=== PATIENT | female | born 1970 | race Caucasian/White ===

== ENCOUNTER 2016-05-18 17:04 | Emergency (ER) | payer OTHER ==
[~2016-05-18] VITALS: Ht 188 cm; Wt 103.3 kg
[~2016-05-18 17:04] MED LIST: ASPIRIN81 M1 PO; AUGMENTIN875 MG PO; BACTRIM,SEPT1 TABLET PO; BENADRYL25 MG PO; CIPRO500 MG PO; CIPROFLOXACIN500 M1 PO; CLONAZEPAM0.5 MG PO; FIORICET 50-301 EACH PO; FLEXERIL10 MG PO; HYDROCODON-ACE1 EAC7 PO; KEFLEX500 MG PO; KENALOG,ARISTOC80 GM TP; LEXAPRO10 MG PO; MEDROL DOSEPAK4 MG PO; MOBIC7.5 MG PO; MOTRIN800 MG PO; NAPROSYN500 MG PO; NAPROXEN500 MG PO; NO ROUTINE HOME MEDS; NOHOMEMEDS; NORCO 5/3251 TABLET PO; PHENAZOPYRIDIN100 MG PO; PREDNISONE20 MG PO; TESSALON PERLE100 MG PO; TESSALON200 MG PO; VENTOLIN HFA18 GM IH; ZITHROMAX Z-PA250 MG PO; ZITHROMAX250 MG PO; ZITHROMAX500 MG PO; ZOFRAN ODT4 MG PO
[2016-05-18 17:41] LABS: HEMATOCRIT 39.7 % (36.0-46.0); MCH 28.4 PG (29.0-34.0); MCHC 32.2 G/DL (30.0-36.0); MEAN PLAT.VOLUME 9.6 uM^3 (9.5-12.4); PLATELET COUNT 336 K/uL (156-360); RBC DIS.WIDTH-CV 13.3 % (11.8-14.6); RBC DIS.WIDTH-SD 43.2 % (39-53); RED BLOOD COUNT 4.51 M/uL (3.80-5.20); WHITE BLOOD COUNT 8.3 K/uL (4.1-10.2)
[2016-05-18 18:00] LABS: CHLORIDE 108 mEq/L (99-109); POTASSIUM 3.5 mEq/L (3.7-5.4); SODIUM 142 mEq/L (136-147)
[2016-05-18 18:02] LABS: GLUCOSE 117 mg/dL (70-99)
[2016-05-18 18:03] LABS: ANION GAP 9 MEQ/L (2-14)
[2016-05-18 18:04] LABS: TOTAL BILIRUBIN 0.3 mg/dL (0.0-1.0)
[2016-05-18 18:05] LABS: ALKALINE PHOSPHATASE 66 IU/L (3-129)
[2016-05-18 18:06] LABS: GFR ESTIMATE (CALCULATED) > 59 mL/min/
[2016-05-18 18:07] LABS: UREA NITROGEN (BUN) 11 mg/dL (9-23)
[2016-05-18 18:17] LABS: QUANTITATIVE HCG < 4.0 MIU/ML
[2016-05-18 18:18] LABS: ADD MIUA? YES; BILIRUBIN NEGATIVE; BLOOD LARGE; COLOR YELLOW ((YELLOW)); GLUCOSE (STRIP) NEGATIVE; KETONES NEGATIVE; LEUKOCYTES NEGATIVE; NITRITE NEGATIVE; PROTEIN (STRIP) 30; SPECIFIC GRAVITY 1.029 (1.000-1.030); UROBILINOGEN 0.2 MG/DL (0.2-1.0)
[2016-05-18 18:51] LABS: CALCIUM OXALATE CRYSTALS 2+ /HPF; CASTS PRESENT /LPF; CRYSTALS PRESENT; HYALINE CASTS 0-5 /LPF
[2016-05-18 18:52] LABS: BACTERIA 1+ /HPF; EPITHELIAL CELLS 1+ /HPF; MUCUS 3+ /LPF; RED BLOOD CELLS 0-5 /HPF (0-5); UCUL ADDED? NO
[2016-05-18] MEDS ORDERED: ABILIFY5 MG PO (19:21)
[2016-05-18] MEDS ORDERED: ZOLOFT50 MG PO (19:21)
[2016-05-18] MEDS ORDERED: PROVERA,CYCRIN10 MG PO (21:38)
[2016-05-18] MEDS ORDERED: ULTRAM50 MG PO (21:38)
[2016-05-18 21:50] VITALS: BP 126/85
== END 2016-05-18 21:59 | disposition home or self-care (01) ==
LOC: EME 17:04
DX: N93.8 Other specified abnormal uterine and vaginal bleeding (principal); D25.9 Leiomyoma of uterus, unspecified; Z88.1 Allergy status to other antibiotic agents; Z88.6 Allergy status to analgesic agent
CPT/HCPCS: 76856; 80053; 81003; 84702; 85027; 99281; 99284; J1885

== ENCOUNTER 2016-08-10 19:40 | Inpatient (IN) | payer OTHER ==
[~2016-08-10] VITALS: Ht 188 cm; Wt 100.0 kg
[~2016-08-10 19:40] MED LIST changes: +ABILIFY5 MG PO; +PROVERA,CYCRIN10 MG PO; +ULTRAM50 MG PO; +ZOLOFT50 MG PO
[2016-08-10 21:12] LABS: HEMATOCRIT 38.4 % (36.0-46.0); MCH 28.5 PG (29.0-34.0); MCHC 32.8 G/DL (30.0-36.0); MCV 86.9 FL (83-99); MEAN PLAT.VOLUME 9.6 uM^3 (9.5-12.4); PLATELET COUNT 276 K/uL (156-360); RBC DIS.WIDTH-CV 13.1 % (11.8-14.6); RBC DIS.WIDTH-SD 41.4 % (39-53); RED BLOOD COUNT 4.42 M/uL (3.80-5.20); WHITE BLOOD COUNT 11.3 K/uL (4.1-10.2)
[2016-08-10 21:25] LABS: CHLORIDE 104 mEq/L (99-109); POTASSIUM 3.5 mEq/L (3.7-5.4); SODIUM 138 mEq/L (136-147)
[2016-08-10 21:27] LABS: GLUCOSE 90 mg/dL (70-99)
[2016-08-10 21:28] LABS: ANION GAP 9 MEQ/L (2-14)
[2016-08-10 21:29] LABS: TOTAL BILIRUBIN 0.6 mg/dL (0.0-1.0)
[2016-08-10 21:31] LABS: ALKALINE PHOSPHATASE 66 IU/L (3-129); GFR ESTIMATE (CALCULATED) > 59 mL/min/
[2016-08-10 21:32] LABS: UREA NITROGEN (BUN) 10 mg/dL (9-23)
[2016-08-10 21:34] LABS: LIPASE 33 U/L (1.0-51.0)
[2016-08-10 21:40] LABS: QUANTITATIVE HCG < 4.0 MIU/ML
[2016-08-10 21:46] LABS: ADD MIUA? YES; BILIRUBIN NEGATIVE; BLOOD MODERATE; COLOR YELLOW ((YELLOW)); GLUCOSE (STRIP) NEGATIVE; KETONES NEGATIVE; LEUKOCYTES SMALL; NITRITE NEGATIVE; PROTEIN (STRIP) 30; SPECIFIC GRAVITY 1.016 (1.000-1.030); UROBILINOGEN 0.2 MG/DL (0.2-1.0)
[2016-08-10 22:01] LABS: BACTERIA 2+ /HPF; CASTS PRESENT /LPF; CRYSTALS NONE SEEN; EPITHELIAL CELLS 1+ /HPF; HYALINE CASTS RARE /LPF; MUCUS 3+ /LPF; UCUL ADDED? NO; WHITE BLOOD CELLS 0-5 /HPF (0-5)
[2016-08-10] MEDS ORDERED: OXCARBAZEPINE150 MG PO (22:56)
[2016-08-10] MEDS ORDERED: ELAVIL50 MG PO (22:56)
[2016-08-11] VITALS (7 sets, daily range): BP systolic 99–112; BP diastolic 49–65
[2016-08-11 07:15] LABS: HEMATOCRIT 35.1 % (36.0-46.0); MCH 28.5 PG (29.0-34.0); MCHC 32.5 G/DL (30.0-36.0); MCV 87.8 FL (83-99); MEAN PLAT.VOLUME 10.1 uM^3 (9.5-12.4); PLATELET COUNT 250 K/uL (156-360); RBC DIS.WIDTH-CV 13.1 % (11.8-14.6); RBC DIS.WIDTH-SD 42.4 % (39-53); WHITE BLOOD COUNT 10.4 K/uL (4.1-10.2)
[2016-08-11 07:32] LABS: ANION GAP 7 MEQ/L (2-14); CHLORIDE 105 MEQ/L (99-109); GFR ESTIMATE (CALCULATED) > 59 mL/min/; GLUCOSE 93 mg/dL (70-99); POTASSIUM 3.8 MEQ/L (3.7-5.4); SAMPLE HEMOLYSIS CHECK 0; SAMPLE ICTERIC CHECK 0; SAMPLE LIPEMIA CHECK 0; SODIUM 139 MEQ/L (136-147); UREA NITROGEN (BUN) 10 mg/dL (9-23)
[2016-08-12 03:30] VITALS: BP 95/52
[2016-08-12 07:20] VITALS: BP 99/53
[2016-08-12 07:30] LABS: HEMATOCRIT 36.6 % (36.0-46.0); MCH 28.1 PG (29.0-34.0); MCHC 31.7 G/DL (30.0-36.0); MCV 88.6 FL (83-99); PLATELET COUNT 266 K/uL (156-360); RBC DIS.WIDTH-CV 13.2 % (11.8-14.6); RBC DIS.WIDTH-SD 43.3 % (39-53); RED BLOOD COUNT 4.13 M/uL (3.80-5.20)
[2016-08-12 07:43] LABS: ANION GAP 7 MEQ/L (2-14); CHLORIDE 108 MEQ/L (99-109); GFR ESTIMATE (CALCULATED) > 59 mL/min/; GLUCOSE 91 mg/dL (70-99); POTASSIUM 4.1 MEQ/L (3.7-5.4); SAMPLE HEMOLYSIS CHECK 0; SAMPLE ICTERIC CHECK 0; SAMPLE LIPEMIA CHECK 0; SODIUM 141 MEQ/L (136-147); UREA NITROGEN (BUN) 8 mg/dL (9-23)
[2016-08-12] MEDS ORDERED: CIPRO500 MG PO (09:54)
[2016-08-12] MEDS ORDERED: FLAGYL500 MG PO ×2 (09:54→15:01)
== END 2016-08-12 10:56 | disposition home or self-care (01) | DRG 392 ==
LOC: EME 19:40 → EXP 19:40 → 2EAST 23:13 → EDOF 23:13 → 2EAST 08-11 00:26
PROVIDERS: Internal Medicine; Physician Assistant
DX: K57.20 Diverticulitis of large intestine with perforation and abscess without bleeding (principal); E87.6 Hypokalemia; D72.829 Elevated white blood cell count, unspecified; K76.0 Fatty (change of) liver, not elsewhere classified; E66.9 Obesity, unspecified; Z68.28 Body mass index [BMI] 28.0-28.9, adult; Z86.010 Personal history of colon polyps; Z88.5 Allergy status to narcotic agent; Z98.51 Tubal ligation status
CPT/HCPCS: 74177; 80048; 80053; 81003; 83690; 84702; 85027; 87040; 99281; 99285; J0744; J1644; J1885; J2270; J2405; J7030; S0030

== ENCOUNTER → 2016-10-04 | Outpatient (CLI) | payer OTHER ==
[~2016-10-04] MED LIST changes: +ELAVIL50 MG PO; +FLAGYL500 MG PO; +OXCARBAZEPINE150 MG PO
== END | disposition home or self-care (01) ==
LOC: CDC 11:41
DX: K57.32 Diverticulitis of large intestine without perforation or abscess without bleeding (principal)
CPT/HCPCS: 93000

== ENCOUNTER 2016-10-10 22:06 | Inpatient (IN) | payer OTHER ==
[~2016-10-10] VITALS: Ht 182.9 cm; Wt 86.1 kg
[2016-10-11 07:23] VITALS: BP 104/68
[2016-10-11 17:50] VITALS: BP 112/66
[2016-10-11 19:49] LABS: HEMATOCRIT 35.2 % (36.0-46.0); MCH 30.2 PG (29.0-34.0); MCHC 34.4 G/DL (30.0-36.0); MCV 87.8 FL (83-99); MEAN PLAT.VOLUME 9.7 uM^3 (9.5-12.4); PLATELET COUNT 261 K/uL (156-360); RBC DIS.WIDTH-CV 13.2 % (11.8-14.6); RBC DIS.WIDTH-SD 42.6 % (39-53); RED BLOOD COUNT 4.01 M/uL (3.80-5.20); WHITE BLOOD COUNT 11.1 K/uL (4.1-10.2)
[2016-10-11 19:50] VITALS: BP 95/57
[2016-10-11 20:04] LABS: ANION GAP 11 MEQ/L (2-14); CHLORIDE 106 MEQ/L (99-109); POTASSIUM 3.9 MEQ/L (3.7-5.4); SAMPLE HEMOLYSIS CHECK 0; SAMPLE ICTERIC CHECK 0; SAMPLE LIPEMIA CHECK 0; SODIUM 141 MEQ/L (136-147); TOTAL BILIRUBIN 0.6 MG/DL (0.0-1.0)
[2016-10-11 20:10] LABS: ALKALINE PHOSPHATASE 62 IU/L (3-129); GFR ESTIMATE (CALCULATED) > 59 mL/min/; GLUCOSE 152 mg/dL (70-99); UREA NITROGEN (BUN) 7 mg/dL (9-23)
[2016-10-12 00:32] VITALS: BP 90/64
[2016-10-12 07:05] VITALS: BP 110/61
[2016-10-12 10:11] LABS: EOSINOPHIL (%) 0.1 % (0-5); HEMATOCRIT 34.7 % (36.0-46.0); IMMATURE GRANULOCYTE (%) 0.4 % (0.0-0.7); INSTRUMENT ABS NEUTROPHIL CT 7.3 K/uL; LYMPHOCYTE COUNT 2.3 K/uL (1.0-2.8); MCH 28.9 PG (29.0-34.0); MCHC 32.6 G/DL (30.0-36.0); MCV 88.7 FL (83-99); MEAN PLAT.VOLUME 9.8 uM^3 (9.5-12.4); MONOCYTE (%) 6.3 % (3-12); MONOCYTE COUNT 0.7 K/uL (0-0.8); NEUTROPHIL (%) 70.9 % (45-76); NEUTROPHIL COUNT 7.3 K/uL (1.8-6.4); PLATELET COUNT 259 K/uL (156-360); RBC DIS.WIDTH-CV 13.4 % (11.8-14.6); RED BLOOD COUNT 3.91 M/uL (3.80-5.20); WHITE BLOOD COUNT 10.3 K/uL (4.1-10.2)
[2016-10-12 10:37] LABS: ALKALINE PHOSPHATASE 52 IU/L (3-129); ANION GAP 7 MEQ/L (2-14); CHLORIDE 109 MEQ/L (99-109); GFR ESTIMATE (CALCULATED) > 59 mL/min/; MAGNESIUM 1.9 mg/dl (1.3-2.7); POTASSIUM 3.9 MEQ/L (3.7-5.4); SAMPLE HEMOLYSIS CHECK 0; SAMPLE ICTERIC CHECK 0; SAMPLE LIPEMIA CHECK 0; SODIUM 145 MEQ/L (136-147); UREA NITROGEN (BUN) 7 mg/dL (9-23)
[2016-10-12 10:39] LABS: GLUCOSE 110 mg/dL (70-99); TOTAL BILIRUBIN 0.4 MG/DL (0.0-1.0)
[2016-10-12 11:00] VITALS: BP 100/65
[2016-10-12 15:30] VITALS: BP 106/63
[2016-10-12 23:39] VITALS: BP 102/57
[2016-10-13 05:42] LABS: HEMATOCRIT 32.8 % (36.0-46.0); MCH 28.3 PG (29.0-34.0); MCHC 31.4 G/DL (30.0-36.0); MCV 90.1 FL (83-99); MEAN PLAT.VOLUME 9.8 uM^3 (9.5-12.4); PLATELET COUNT 226 K/uL (156-360); RBC DIS.WIDTH-CV 13.7 % (11.8-14.6); RBC DIS.WIDTH-SD 45.1 % (39-53); RED BLOOD COUNT 3.64 M/uL (3.80-5.20); WHITE BLOOD COUNT 6.9 K/uL (4.1-10.2)
[2016-10-13 06:31] LABS: ANION GAP 6 MEQ/L (2-14); CHLORIDE 107 MEQ/L (99-109); GFR ESTIMATE (CALCULATED) > 59 mL/min/; POTASSIUM 3.8 MEQ/L (3.7-5.4); SAMPLE HEMOLYSIS CHECK 0; SAMPLE ICTERIC CHECK 0; SAMPLE LIPEMIA CHECK 0; SODIUM 143 MEQ/L (136-147); UREA NITROGEN (BUN) 7 mg/dL (9-23)
[2016-10-13 06:32] LABS: GLUCOSE 82 mg/dL (70-99)
[2016-10-13 08:47] VITALS: BP 100/55
[2016-10-13] MEDS ORDERED: HYDROCODON-ACE1 EAC7 PO (09:24)
[2016-10-13] MEDS ORDERED: COLACE100 MG PO (09:25)
== END 2016-10-13 12:38 | disposition home or self-care (01) | DRG 331 ==
LOC: ENRESERV 22:06 → 2SOUTH 10-11 06:17 → ENRESERV 10-11 06:50 → 2SOUTH 10-11 09:31 → ENRESERV 10-11 13:35 → 2SOUTH 10-11 13:57 → ENRESERV 10-11 14:57 → 2SOUTH 10-11 16:00 → 5EAST 10-11 16:59
PROVIDERS: Surgery
DX: K57.32 Diverticulitis of large intestine without perforation or abscess without bleeding (principal); G43.109 Migraine with aura, not intractable, without status migrainosus; Z98.51 Tubal ligation status; N94.6 Dysmenorrhea, unspecified
CPT/HCPCS: 80048; 80053; 83735; 84100; 85025; 85027; 88305; 88307; 93005; J0131; J0330; J0744; J1100; J1170; J1650; J2250; J2405; J2550; J2710; J3010; J7120; S0030

== ENCOUNTER 2017-01-02 18:20 | Emergency (ER) | payer OTHER ==
[~2017-01-02] VITALS: Ht 188 cm; Wt 100.2 kg
[~2017-01-02 18:20] MED LIST changes: +COLACE100 MG PO
[2017-01-02] MEDS ORDERED: LIDODERM 5% P1 PATCH TD (20:45)
[2017-01-02] MEDS ORDERED: LORTAB 5-325 M1 EACH PO (20:45)
[2017-01-02] MEDS ORDERED: MOTRIN600 MG PO (20:45)
[2017-01-02 20:54] VITALS: BP 123/84
== END 2017-01-02 21:02 | disposition home or self-care (01) ==
LOC: RME 18:20 → EME 18:20 → RME 21:02
DX: M54.5 Low back pain (principal); M79.605 Pain in left leg; Z77.22 Contact with and (suspected) exposure to environmental tobacco smoke (acute) (chronic)
CPT/HCPCS: 99281; 99284

== ENCOUNTER 2017-04-04 19:26 | Emergency (ER) | payer OTHER ==
[~2017-04-04] VITALS: Ht 188 cm; Wt 100.9 kg
[~2017-04-04 19:26] MED LIST changes: +LIDODERM 5% P1 PATCH TD; +LORTAB 5-325 M1 EACH PO; +MOTRIN600 MG PO
[2017-04-04] MEDS ORDERED: VENTOLIN HFA18 GM IH (22:34)
[2017-04-04] MEDS ORDERED: PREDNISONE20 MG PO (22:34)
[2017-04-04 22:54] VITALS: BP 112/76
== END 2017-04-04 22:55 | disposition home or self-care (01) ==
LOC: EME 19:26
PROVIDERS: Physician Assistant
DX: J20.9 Acute bronchitis, unspecified (principal); R07.89 Other chest pain; Z88.5 Allergy status to narcotic agent; Z88.0 Allergy status to penicillin
CPT/HCPCS: 71046; 87502; 87651 90; 94640; 99281; 99284; J7512

== ENCOUNTER 2017-07-31 15:04 | Emergency (ER) | payer OTHER ==
[~2017-07-31] VITALS: Ht 185.4 cm; Wt 50.7 kg
[2017-07-31 15:55] LABS: HEMATOCRIT 40.2 % (36.0-46.0); HEMOGLOBIN 13.4 G/DL (11.9-15.5); MCHC 33.3 G/DL (30.0-36.0); PLATELET COUNT 317 K/uL (156-360); RBC DIS.WIDTH-CV 13.1 % (11.8-14.6); RBC DIS.WIDTH-SD 41.2 % (39-53); RED BLOOD COUNT 4.62 M/uL (3.80-5.20); WHITE BLOOD COUNT 8.6 K/uL (4.1-10.2)
[2017-07-31 16:03] LABS: CHLORIDE 107 mEq/L (99-109); POTASSIUM 4.4 mEq/L (3.7-5.4); SODIUM 143 mEq/L (136-147)
[2017-07-31 16:05] LABS: GLUCOSE 96 mg/dL (70-99)
[2017-07-31 16:09] LABS: CREATININE 0.9 mg/dL (0.6-1.3); GFR ESTIMATE (CALCULATED) > 59 mL/min/
[2017-07-31 16:10] LABS: UREA NITROGEN (BUN) 13 mg/dL (9-23)
[2017-07-31 16:15] LABS: TROP-I INTERPRETATION NEGATIVE; TROPONIN-I < 0.01 ng/mL (0.0-0.30)
[2017-07-31] MEDS ORDERED: RISPERIDONE0.5 MG PO (16:38)
[2017-07-31] MEDS ORDERED: TRAZODONE HCL50 MG PO (16:38)
[2017-07-31 16:59] VITALS: BP 101/68
== END 2017-07-31 17:04 | disposition home or self-care (01) ==
LOC: EME 15:04
PROVIDERS: Nurse Practitioner Family
DX: R07.9 Chest pain, unspecified (principal); R42 Dizziness and giddiness; F41.9 Anxiety disorder, unspecified; Z88.0 Allergy status to penicillin; Z88.5 Allergy status to narcotic agent
CPT/HCPCS: 71046; 80048; 84484; 85027; 93005; 99281; 99285